=== PATIENT | female | born 1965 | race Caucasian/White ===

== ENCOUNTER 2017-12-05 16:06 | Outpatient (CLI) | payer OTHER | END 2017-12-05 16:07 | disposition home or self-care (01) | LOC: BICMAMMO 16:06 | PROVIDERS: ATTEND Family Medicine | DX: Z12.31 Encounter for screening mammogram for malignant neoplasm of breast (principal); R92.1 Mammographic calcification found on diagnostic imaging of breast; Z80.3 Family history of malignant neoplasm of breast | CPT/HCPCS: 77063; 77067 ==

== ENCOUNTER 2019-07-27 09:27 | Outpatient (CLI) | payer OTHER ==
--- NOTE | 2019-07-27 09:54 | ULT ---
GALLBLADDER ULTRASOUND: HISTORY: Right upper quadrant abdominal pain FINDINGS: The liver demonstrates homogeneous echotexture without focal mass or intrahepatic biliary ductal dila tation. There is a mobile shadowing 1.6 cm calculus in the gallbladder. No gallbladder wall thickening or per icholecystic fluid are seen. The right kidney and visualized portions of the pancreas are normal. The common duct [id number] in diameter. No free fluid is seen in the [place]'s pouch. IMPRESSION: Cholelithiasis
== END 2019-07-27 09:28 | disposition home or self-care (01) ==
LOC: BICULT 09:27
PROVIDERS: ATTEND Internal Medicine Gastroenterology
DX: R10.11 Right upper quadrant pain (principal); K80.20 Calculus of gallbladder without cholecystitis without obstruction; Z80.9 Family history of malignant neoplasm, unspecified
CPT/HCPCS: 76705

== ENCOUNTER 2020-02-09 08:02 | Outpatient (CLI) | payer OTHER ==
--- NOTE | 2020-02-10 12:17 | MMO ---
Bilateral MAMMO Bilat Screen [facility]. CLINICAL HISTORY: Patient is 54 years old and is seen for screening. The patient has the following family history of breast cancer: cousin female. The patient has no personal history of cancer. VIEWS: The views performed were: bilateral craniocaudal with tomosynthesis and bilateral mediolateral oblique with tomosynthesis. FILMS COMPARED: The present examination has been compared to prior imaging studies performed at [facility] on 02/08/2014, 05/09/2015, 08/14/2016 and 12/05/2017. This study has been interpreted with the assistance of computer-aided detection. MAMMOGRAM FINDINGS: The breasts are extremely dense, which may lower the sensitivity of mammography. Finding 1: There are stable benign appearing calcifications seen in both breasts. Finding 2: There are stable benign appearing densities seen in both breasts. There are no suspicious masses, suspicious calcifications, or new areas of architectural distortion. IMPRESSION: THERE IS NO MAMMOGRAPHIC EVIDENCE OF MALIGNANCY. A ROUTINE FOLLOW-UP MAMMOGRAM IN 1 YEAR IS RECOMMENDED. THE RESULTS OF THIS EXAM WERE SENT TO THE PATIENT. ACR BI-RADS Category 2 - Benign finding MAMMOGRAPHY NOTE: 1. A negative mammogram report should not delay a biopsy if a dominant of clinically suspicious mass is present. 2. Approximately 10% to 15% of breast cancers are not detected by mammography. 3. Adenosis and dense breasts may obscure an underlying neoplasm. Reported by: JAMES GOLDSMITH MD Electonically Signed: [id number]
== END 2020-02-09 08:03 | disposition home or self-care (01) ==
LOC: BICMAMMO 08:02
PROVIDERS: ATTEND Family Medicine
DX: Z12.31 Encounter for screening mammogram for malignant neoplasm of breast (principal); Z80.3 Family history of malignant neoplasm of breast
CPT/HCPCS: 77063; 77067

== ENCOUNTER 2020-03-15 10:34 | Outpatient (CLI) | payer OTHER ==
--- NOTE | 2020-03-15 14:12 | CT ---
CT ABDOMEN AND PELVIS WITHOUT CONTRAST: 03/15/20 PROVIDED CLINICAL HISTORY: Left flank pain and hematuria. FINDINGS: Comparison is made with the study dated 08/04/09. The visualized lung bases are free of significant opacity. There is no evidence for urinary tract calculi or hydronephrosis. The solid abdominal organs are subo ptimally evaluated in the absence of IV contrast material but demonstrate an unremarkable unenhanced CT appearance. There is no bowel dilatation, inflammatory fat stranding, free fluid, or lymph node enlargement appar ent. The appendix appears normal. Sigmoid colonic diverticulosis is demonstrated. The osseous structures demonstrate no concerning lytic or blastic lesions. 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 IMPRESSION: No evidence for urinary tract calculi or hydronephrosis. POS: AH
== END 2020-03-15 10:35 | disposition home or self-care (01) ==
LOC: BICCT 10:34
PROVIDERS: ATTEND Family Medicine
DX: N23 Unspecified renal colic (principal)
CPT/HCPCS: 74176

== ENCOUNTER 2020-11-21 12:14 | Outpatient (CLI) | payer OTHER | END 2020-11-21 12:15 | disposition home or self-care (01) | LOC: BICRAD 12:14 | PROVIDERS: ATTEND Family Medicine | DX: M25.562 Pain in left knee (principal); M54.5 Low back pain; M47.816 Spondylosis without myelopathy or radiculopathy, lumbar region | CPT/HCPCS: 72100 ==

== ENCOUNTER 2021-01-03 11:56 | Outpatient (CLI) | payer OTHER | END 2021-01-03 11:57 | disposition home or self-care (01) | LOC: BICRAD 11:56 | PROVIDERS: ATTEND Family Medicine | DX: M25.551 Pain in right hip (principal); M25.561 Pain in right knee; M16.11 Unilateral primary osteoarthritis, right hip; M17.11 Unilateral primary osteoarthritis, right knee ==

== ENCOUNTER 2022-01-25 09:38 | Outpatient (CLI) | payer BC | END 2022-01-25 09:39 | disposition home or self-care (01) | LOC: BICMAMMO 09:38 | PROVIDERS: ATTEND Family Medicine | DX: Z12.31 Encounter for screening mammogram for malignant neoplasm of breast (principal); Z80.3 Family history of malignant neoplasm of breast | CPT/HCPCS: 77063; 77067 ==

== ENCOUNTER 2022-02-27 12:28 | Outpatient (CLI) | payer BC | END 2022-02-27 12:29 | disposition home or self-care (01) | LOC: BICMRI 12:28 | PROVIDERS: ATTEND Orthopaedic Surgery | DX: M23.303 Other meniscus derangements, unspecified medial meniscus, right knee (principal); S83.241A Other tear of medial meniscus, current injury, right knee, initial encounter; S83.421A Sprain of lateral collateral ligament of right knee, initial encounter; S83.511A Sprain of anterior cruciate ligament of right knee, initial encounter; S86.811A Strain of other muscle(s) and tendon(s) at lower leg level, right leg, initial encounter ==

== ENCOUNTER 2022-03-22 06:37 | Day surgery (SDC) | payer BC ==
[2022-03-20 15:54] VITALS: BMI 40.1
[2022-03-22] MEDS ORDERED: Bupivacaine PF 0.5% 30 ML VIAL ONE (08:13)
[2022-03-22] MEDS ORDERED: Lidocaine 1% (PF) 30 ML VIAL ONE (08:13)
[2022-03-22] MEDS ORDERED: PROPOFOL 20 ML ONE (08:17)
[2022-03-22] MEDS ORDERED: Lidocaine 1% PF 5 ML VIAL ONE ×2 (08:58→09:12)
[2022-03-22] MEDS ORDERED: fentaNYL Citrate/PF 100 MCG/2 ML SYRINGE ONE (08:58)
[2022-03-22] MEDS ORDERED: Sodium Chloride 0.9% 100 ML ONE (09:03)
[2022-03-22] MEDS ORDERED: CEFAZOLIN 2 GM VIAL ONE (09:03)
[2022-03-22] MEDS ORDERED: Bupivacaine HCl 0.5%/Epinephrine 1:200,000/PF 30 ml Vial ONE (09:12)
[2022-03-22] MEDS ORDERED: Ondansetron PF 4 MG/2 ML Vial ONE (09:12)
[2022-03-22] MEDS ORDERED: Ketorolac Tromethamine 30 MG/ML VIAL ONE (09:12)
[2022-03-22] MEDS ORDERED: PHENYLEPHRINE-NS 100 MCG/ML 10 ML SYRINGE ONE (09:12)
[2022-03-22] MEDS ORDERED: Dexamethasone 20 MG/5 ML VIAL ONE (09:12)
[2022-03-22] MEDS ORDERED: PROPOFOL 200 MG/20 ML VIAL ONE (09:12)
[2022-03-22] MEDS ORDERED: Fentanyl 100 MCG/2 ML VIAL ONE (10:10)
== END 2022-03-22 13:44 | disposition home or self-care (01) ==
LOC: SDC 06:37
PROVIDERS: ATTEND Orthopaedic Surgery
PROC: 0SBC4ZZ Excision of Right Knee Joint, Percutaneous Endoscopic Approach (ICD-10-PCS; principal; 2022-03-22)
DX: M23.321 Other meniscus derangements, posterior horn of medial meniscus, right knee (principal); M23.341 Other meniscus derangements, anterior horn of lateral meniscus, right knee; M94.261 Chondromalacia, right knee; M70.61 Trochanteric bursitis, right hip; Z79.899 Other long term (current) drug therapy; Z20.822 Contact with and (suspected) exposure to COVID-19; Z98.890 Other specified postprocedural states
CPT/HCPCS: J0690; J1100; J1885; J2001; J2405; J2704; J3010; J3490; S0020

== ENCOUNTER 2023-01-08 08:27 | Day surgery (SDC) | payer BC ==
[2023-01-03 12:24] VITALS: BMI 36.3
[2023-01-08] MEDS ORDERED: Lidocaine 1% MPF 2 ML VIAL ONE (09:06)
[2023-01-08] MEDS ORDERED: EPINEPHrine 1 MG/ML AMP ONE (11:34)
[2023-01-08] MEDS ORDERED: Bupivacaine 0.25% HCL 30 ML VIAL ONE (11:34)
[2023-01-08] MEDS ORDERED: Indocyanine Green 25 MG/10 ML VIAL ONE (11:34)
[2023-01-08] MEDS ORDERED: fentaNYL PF 100 MCG/2 ML SYRINGE ONE ×2 (12:12→13:38)
[2023-01-08] MEDS ORDERED: Sodium Chloride 0.9% 100 ML ONE (12:15)
[2023-01-08] MEDS ORDERED: CEFAZOLIN 2 GM VIAL ONE (12:15)
[2023-01-08] MEDS ORDERED: Dexamethasone 20 MG/5 ML VIAL ONE (12:30)
[2023-01-08] MEDS ORDERED: Glycopyrrolate 0.2 MG/ML 5 ML SYRINGE ONE (12:30)
[2023-01-08] MEDS ORDERED: Lidocaine 1% PF 5 ML VIAL ONE (12:30)
[2023-01-08] MEDS ORDERED: NEOSTIGMINE 3 MG/3 ML SYR 3 MG/3 ML SYRINGE ONE (12:30)
[2023-01-08] MEDS ORDERED: Rocuronium Bromide 10 MG/ML (10ML VIAL) ONE (12:30)
[2023-01-08] MEDS ORDERED: PROPOFOL 200 MG/20 ML VIAL ONE (12:30)
[2023-01-08] MEDS ORDERED: Ondansetron PF 4 MG/2 ML Vial ONE (12:30)
[2023-01-08] MEDS ORDERED: Meperidine HCl/PF 25 MG/ML VIAL ONE (13:38)
== END 2023-01-08 15:35 | disposition home or self-care (01) ==
LOC: SDC 08:27
PROVIDERS: ATTEND Surgery
PROC: 0FT44ZZ Resection of Gallbladder, Percutaneous Endoscopic Approach (ICD-10-PCS; principal; 2023-01-08)
DX: K80.10 Calculus of gallbladder with chronic cholecystitis without obstruction (principal)
CPT/HCPCS: 88304; C1889; J0171; J1100; J2175; J2405; J2704; J3490; S0020